=== PATIENT | female | born 1955 | race African-American/Black ===

== ENCOUNTER 2019-05-22 11:11 | Emergency (ER) | payer MEDICARE, OTHER ==
[2019-05-22 11:34] VITALS: BP 149/68; PULSE 85; TEMP 98.6; BMI 34.4
[2019-05-22] MEDS ORDERED: hydrOXYzine HCL 100 MG/2 ML VIAL IM ONE (11:56)
[2019-05-22] MEDS ORDERED: FAMOTIDINE 20 MG TABLET PO ONE (11:56)
--- NOTE | 2019-05-22 11:56 | PDOC ---
History of Present Illness - General Chief Complaint: Rash Stated Complaint: RASH Time Seen by Provider: 05/22/19 11:12 - History of Present Illness Initial Comments: 05/22/19 12:51 Chief complaint: Skin rash History of present illness: After eating some processed food on Monday, patient began to feel itching on her neck, chest, and upper back. Her upper back has continued to itch and has become red and swollen. Review of systems: Denies irritation or swelling of the throat, tongue, lips, or other areas of the oropharynx or face. Denies chest tightness or wheezing. Denies chest pain or shortness of breath. Denies abdominal pain, nausea, vomiting, or diarrhea. Taking a new vitamin for about the last month, but all other medications are unchanged long-term. Remainder systems reviewed and negative Past medical history: [id number] diabetes, elevated blood pressure, hypertension. States she was ALLERGIC to penicillin as a child, but has since received penicillin on numerous occasions without untoward reaction. Social/family history reviewed and noncontributory Physical exam: Alert and oriented well-developed well-nourished no acute distress cooperative Afebrile, vital signs normal PERRLA, fundi benign, ENT clear. Specifically, there is no angioedema of the oropharynx, lips, or face. Neck supple without bruit mass or nodes Chest clear to P&A, full breath sounds bilaterally, no wheezes rales or rhonchi S1 and S2 normal without murmur rub or gallop pulses full and symmetric no JVD or edema no bruits regular 90 Abdomen soft nontender without mass or organomegaly. Bowel sounds normal. Nondistended Extremities no CCE Skin reveals urticaria and edema of the nape of the neck and upper back, as well as mild erythema of the neck and upper chest. Impression: Urticaria, probably from food, no new medications, no other obvious exposures. Plan: Stop all vitamins, suppleness, and other medications other than long-term prescription medications. No hot showers, cool compresses. H1 and H2 blockers. Antibiotic for the possibility of infection in the nape of the neck and upper back, due to erythema induration and warmth. Close follow-up 2 days primary physician or return to Hospital if worse. Past History - Past Medical History Allergies/Adverse Reactions: Allergies Allergy/AdvReac Type Severity Reaction Status Date / Time Penicillins Allergy Severe Hives Verified 05/22/19 12:05 Home Medications: Ambulatory Orders Cephalexin Monohydrate [Keflex] 500 mg PO Q6H #20 capsule 05/22/19 Famotidine [Pepcid] 20 mg PO BID #20 tablet 05/22/19 Metformin HCl [Glucophage] 500 mg PO BID 05/22/19 Olmesartan/Hydrochlorothiazide [Olmesartan-Hctz 20-12.5 mg Tab] 1 tab PO DAILY 05/22/19 Oxycodone HCl [Oxycodone HCl ER] 20 mg PO DAILY 05/22/19 hydrOXYzine PAMOATE [Vistaril -] 50 mg PO QID #20 capsule 05/22/19 Anemia: No Asthma: No Cancer: No Cardiac Disorders: No CVA: No COPD: No CHF: No Dementia: No Diabetes: Yes (NIDDM) GI Disorders: Yes (GERD) Disorders: No HTN: Yes Hypercholesterolemia: No Liver Disease: No Seizures: No Thyroid Disease: No - Surgical History Abdominal Surgery: No Appendectomy: No Cardiac Surgery: No Cholecystectomy: Yes (GALLSTONE) Lung Surgery: No Neurologic Surgery: No Orthopedic Surgery: Yes (LEFT SHOULDER & RIGHT ANKLE ARTHROSCOPY) - Suicide/Smoking/Psychosocial Hx Smoking History: Never smoked Have you smoked in the past 12 months: No Information on smoking cessation initiated: No Hx Alcohol Use: No Drug/Substance Use Hx: No Substance Use Type: None Hx Substance Use Treatment: No *Physical Exam - Vital Signs Last Vital Signs Temp Pulse Resp BP Pulse Ox 98.6 F 85 16 149/68 98 05/22/19 11:11 05/22/19 11:11 05/22/19 11:11 05/22/19 11:11 05/22/19 11:11 Medical Decision Making - Medical Decision Making 05/22/19 12:03 When asked if she is ALLERGIC to penicillin, patient states that she was when she was a child, but is no longer ALLERGIC. She has taken penicillin on numerous times in her adult life without any reaction. 05/22/19 12:57 Itching is less after administration of Benadryl and Pepcid. Urticaria seems to have improved. Oropharynx and lungs remain clear and abdomen benign. *DC/Admit/Observation/Transfer Diagnosis at time of Disposition: Allergic reaction Qualifiers: Encounter type: initial encounter Qualified Code(s): T78.40XA - Allergy, unspecified, initial encounter - Discharge Dispostion Disposition: HOME Condition at time of disposition: Improved Decision to Admit order: No - Prescriptions Prescriptions: Cephalexin Monohydrate [Keflex] 500 mg PO Q6H #20 capsule Famotidine [Pepcid] 20 mg PO BID #20 tablet hydrOXYzine PAMOATE [Vistaril -] 50 mg PO QID #20 capsule - Referrals Referrals: Robert Ponce MD [Primary Care Provider] - 2 Days - Patient Instructions Printed Discharge Instructions: DI for Hives Additional Instructions: Avoid hot showers. Use cool compresses. Skin moisturizer. Medication as directed. Stop all nonprescription medications including supplements, vitamins, and skin care products/cosmetics. Recheck primary care physician in 2 days. Return to ER if worse or further symptoms develop. - Post Discharge Activity
[2019-05-22] MEDS ORDERED: CEPHALEXIN MONOHYDRATE 500 MG CAPSULE (UD) PO ONE (11:59)
[2019-05-22] MEDS ORDERED: FAMOTIDINE 20 MG TABLET ONE (12:00)
[2019-05-22] MEDS ORDERED: CEPHALEXIN MONOHYDRATE 500 MG CAPSULE (UD) ONE (12:06)
[2019-05-22] MEDS ORDERED: hydrOXYzine PAMOATE 50 MG CAPSULE (FP) PO ONE (12:08)
[2019-05-22] MEDS ORDERED: hydrOXYzine PAMOATE 25 MG CAPSULE (FP) PO ONE (12:08)
== END 2019-05-22 12:49 | disposition home or self-care (01) ==
LOC: FER 11:11
DX: T78.40XA Allergy, unspecified, initial encounter (principal); K21.9 Gastro-esophageal reflux disease without esophagitis; I10 Essential (primary) hypertension; E11.9 Type 2 diabetes mellitus without complications
CPT/HCPCS: 99281-25

== ENCOUNTER 2024-03-13 17:46 | Emergency (ER) | payer OTHER ==
[2024-03-13 18:19] VITALS: BP 157/77; PULSE 80; RESP 18; TEMP 97.8; BMI 32.8
[2024-03-13] MEDS ORDERED: IBUPROFEN 600 MG TABLET (FP) PO ONE (18:42)
[2024-03-13] MEDS: IBUPROFEN 600 MG TABLET (FP) PO ONE (18:49)
== END 2024-03-13 20:06 | disposition home or self-care (01) ==
LOC: FER 17:46
DX: M65.132 Other infective (teno)synovitis, left wrist (principal); M25.532 Pain in left wrist
CPT/HCPCS: 73090-TC-LT-FY; 73110-TC-LT-FY; 73130-TC-LT-FY; 99284-25